=== PATIENT | female | born 1945 | race Caucasian/White ===

== ENCOUNTER 2020-10-14 16:00 | Observation (INO) | payer MEDICARE ==
--- NOTE | 2020-10-14 16:16 | PCM.HP.2 ---
H&P History of Present Illness - General Date of Service: 10/14/20 Admit Problem/Dx: Admission Diagnosis/Problem Admission Diagnosis/Problem Hyponatremia Source of Information: Patient History Limitations: Reports: No Limitations - History of Present Illness Initial Comments - Free Text/Narative: This is a 75yo F with increasing weakness and fatigue. She came to the clinic for evaluation and was found to have severe hyponatremia with symptoms. Onset of Symptoms: Reports: Gradual Duration of Symptoms: Reports: Week(s): Location: Reports: Generalized Severity: Severe Improves with: Reports: None Worsens with: Reports: Movement H&P Review of Systems - Review of Systems: Review Of Systems: Comprehensive ROS is negative, except as noted in HPI. Exam - Exam Exam: See Below - Exam General: Alert, Cooperative HEENT: PERRLA, Conjunctiva Clear, EACs Clear Neck: Supple, Trachea Midline Lungs: Clear to Auscultation, Normal Respiratory Effort Cardiovascular: Regular Rate, Regular Rhythm GI/Abdominal Exam: Normal Bowel Sounds, Soft, Non-Tender Extremities: Normal Inspection Skin: Warm, Dry, Intact Neurological: Cranial Nerves Intact, Reflexes Equal Bilateral - Problem List (1) Hyponatremia SNOMED Code(s): 50593261 ICD Code: E87.1 - HYPO-OSMOLALITY AND HYPONATREMIA Status: Acute Priority: High Current Visit: Yes (2) Altered mental state SNOMED Code(s): 147810907 ICD Code: R41.82 - ALTERED MENTAL STATUS, UNSPECIFIED Status: Acute Priority: High Current Visit: Yes Qualifiers: Altered mental status type: delirium Qualified Code(s): R41.0 - Disorientation, unspecified Problem List Initiated/Reviewed/Updated: Yes Orders Last 24hrs: Active Orders 24 hr Category Date Time Status Patient Status [ADT] Routine ADT 10/14/20 16:10 Ordered Ambulate [RC] PER UNIT ROUTINE Care 10/14/20 16:10 Ordered Oxygen Therapy [RC] PRN Care 10/14/20 16:10 Ordered Vital Signs [RC] Q4H Care 10/14/20 16:10 Ordered Sodium Chloride 0.9% [Normal Saline] 1,000 ml Med 10/14/20 16:15 Ordered IV ASDIRECTED Resuscitation Status Routine Resus Stat 10/14/20 16:10 Ordered Medication Orders Sodium Chloride (Normal Saline) 1,000 mls @ 150 mls/hr IV ASDIRECTED [facility] Assessment/Plan Comment:: Patient to be admitted for NaCl resuscitation and repeat labs in AM. Vitals q4 and as needed.
[2020-10-14] MEDS: Sodium Chloride 0.9% 1,000 ML IV SCH (17:56)
[2020-10-15] MEDS: Sodium Chloride 0.9% 1,000 ML IV SCH ×3 (00:16→13:04)
[2020-10-15] MEDS ORDERED: Lisinopril 10 MG Tab PO ONE (00:20)
[2020-10-15] MEDS ORDERED: Lisinopril 10 MG Tab ONE (00:22)
--- NOTE | 2020-10-15 08:20 | PCM.PN ---
- General Info Date of Service: 10/15/20 Subjective Update: Patient feeling improved today. She had bouts of low sugar with her monitor alarm going off a few times in the night. Nursing report elevated BP as well with an additional lisinopril dose yesterday evening. No concerns today. Functional Status: Reports: Tolerating Diet - Review of Systems General: Reports: Weakness HEENT: Reports: No Symptoms Pulmonary: Reports: No Symptoms Cardiovascular: Reports: No Symptoms Gastrointestinal: Reports: No Symptoms Genitourinary: Reports: No Symptoms Musculoskeletal: Reports: No Symptoms Neurological: Reports: Weakness Psychiatric: Reports: Depression - Patient Data Vitals - Most Recent: Last Vital Signs Temp 36.6 C 10/15/20 04:00 Pulse 76 10/15/20 04:00 Resp 16 10/15/20 04:00 BP 160/80 H 10/15/20 04:00 Pulse Ox 99 10/15/20 04:00 Weight - Most Recent: 58.967 kg I&O - Last 24 Hours: Intake & Output 10/14/20 10/15/20 10/15/20 22:59 06:59 14:59 Intake Total 368 2540 Balance 368 2540 Lab Results Last 24 Hours: Laboratory Results - last 24 hr 10/14/20 10/15/20 10/15/20 Range/Units 18:33 07:30 07:30 WBC 4.6 (4.0-11.0) K/uL RBC 4.12 (3.80-5.80) M/uL Hgb 11.6 (11.5-16.5) g/dL Hct 34.4 L (37.0-47.0) % MCV 84 (76-96) fL MCH 28.2 (27.0-32.0) pg MCHC 33.7 (31.0-35.0) g/dL RDW 12.1 (11.0-16.0) % Plt Count 219 (150-500) K/uL MPV 9.7 (6.0-10.0) fL Neut % (Auto) 66.4 (45.0-70.0) % Lymph % (Auto) 19.6 L (20.0-40.0) % [place] % (Auto) 11.4 H (3.0-10.0) % Eos % (Auto) 2.4 (1.0-5.0) % Baso % (Auto) 0.2 (0.0-0.5) % Neut # (Auto) 3.02 (2.00-7.50) K/uL Lymph # (Auto) 0.89 L (1.50-4.00) K/uL [place] # (Auto) 0.52 (0.20-0.80) K/uL Eos # (Auto) 0.11 (0.04-0.40) K/uL Baso # (Auto) 0.01 L (0.02-0.10) K/uL Sodium 129 L (136-145) mmol/L Potassium 4.1 (3.5-5.1) mmol/L Chloride 95 L (98-107) mmol/L Carbon Dioxide 28.8 (21.0-32.0) mmol/L Anion Gap 9.3 (5.0-15.0) mmol/L BUN 10 D (8-26) mg/dL Creatinine 0.82 (0.55-1.02) mg/dL Est Cr Clr Drug Dosing 49.79 mL/min Estimated GFR (MDRD) > 60 (>60) MLS/MIN BUN/Creatinine Ratio 12.2 (6-25) Glucose 72 L D (74-100) mg/dL Calcium 8.5 (8.5-10.1) mg/dL Total Bilirubin 0.4 (0.0-1.0) mg/dL AST 59 H (15-37) U/L ALT 53 (12-78) U/L Alkaline Phosphatase 178 H (46-116) U/L Total Protein 7.4 (6.4-8.2) g/dL Albumin 3.5 (3.4-5.0) g/dL Globulin 3.9 (2.2-4.2) g/dL Albumin/Globulin Ratio 0.9 (0.8-2.0) SARS-CoV-2 RNA (LASHAY) Negative (NEGATIVE) Med Orders - Current: Current Medications Sodium Chloride (Normal Saline) 1,000 mls @ 150 mls/hr IV ASDIRECTED [facility] Last Admin: 10/15/20 00:16 Dose: 150 mls/hr Documented by: Discontinued Medications Lisinopril (Prinivil) 10 mg PO ONETIME ONE Stop: 10/15/20 00:21 Last Admin: 10/15/20 00:22 Dose: 10 mg Documented by: - Exam General: Alert, Oriented, Cooperative HEENT: Pupils Equal, Pupils Reactive, EOMI Neck: Supple Lungs: Clear to Auscultation, Normal Respiratory Effort Cardiovascular: Regular Rate, Regular Rhythm Back Exam: Normal Inspection Extremities: Normal Inspection Neurological: No New Focal Deficit Psy/Mental Status: Depressed Sepsis Event Note - Evaluation Sepsis Screening Result: No Definite Risk - Focused Exam Vital Signs: Vital Signs Temp Temp Pulse Resp BP BP Pulse Ox 10/15/20 04:00 36.6 C 76 16 160/80 H 99 10/15/20 01:15 78 16 175/80 H 10/15/20 00:22 226/76 H 10/15/20 00:15 77 226/76 H 10/15/20 00:00 36.6 C 78 18 203/76 H 100 - Problem List & Annotations (1) Hyponatremia SNOMED Code(s): 46836977 Code(s): E87.1 - HYPO-OSMOLALITY AND HYPONATREMIA Status: Acute Priority: High Current Visit: Yes (2) Altered mental state SNOMED Code(s): 451845813 Code(s): R41.82 - ALTERED MENTAL STATUS, UNSPECIFIED Status: Acute Priority: High Current Visit: Yes Qualifiers: Altered mental status type: delirium Qualified Code(s): R41.0 - Disorientation, unspecified (3) HTN (hypertension) SNOMED Code(s): 56556551 Code(s): I10 - ESSENTIAL (PRIMARY) HYPERTENSION Status: Acute Priority: Medium Current Visit: Yes (4) Low glucose level SNOMED Code(s): 39917709 Code(s): E16.2 - HYPOGLYCEMIA, UNSPECIFIED Status: Acute Priority: Medium Current Visit: Yes - Problem List Review Problem List Initiated/Reviewed/Updated: Yes - My Orders Last 24 Hours: My Active Orders 10/14/20 16:10 Patient Status [ADT] Routine Ambulate [RC] PER UNIT ROUTINE Oxygen Therapy [RC] PRN Vital Signs [RC] Q4H Resuscitation Status Routine 10/14/20 16:15 Sodium Chloride 0.9% [Normal Saline] 1,000 ml IV ASDIRECTED 10/14/20 18:43 CULTURE MRSA SURVEY [RM] Routine 10/15/20 Breakfast Consistent Carbohydrate Diet [DIET] - Plan Plan:: Patient to be admitted for NaCl resuscitation and repeat labs in AM. Vitals q4 and as needed. 10/15/20 F/u am Labs for Na level. -add lisinopril 10 for total 20mg daily. -monitor glucose - hold insulin at this time -discharge planning pending labs.
[2020-10-15] MEDS: Insulin Aspart 100 Units/ML 3 ML Pen SUBCUT SCH ×3 (08:25→17:22)
[2020-10-15] MEDS ORDERED: 50% Dextrose in Water 50 ML Syringe IVPUSH PRN (08:30)
[2020-10-15] MEDS ORDERED: Polyethylene Glycol 3350 Powder 17 GM Packet PO PRN (08:30)
[2020-10-15] MEDS ORDERED: Glucagon,Human Recombinant 1 MG Vial IM PRN (08:30)
[2020-10-15] MEDS: Lisinopril 10 MG Tab PO SCH (09:30)
[2020-10-15] MEDS: amLODIPine 5 MG Tab PO SCH (17:28)
[2020-10-15] MEDS ORDERED: Insulin Detemir 100 Units/ML 3 ML Pen SUBCUT SCH (20:00)
[2020-10-16] MEDS: Sodium Chloride 0.9% 1,000 ML IV SCH ×2 (05:11→05:13)
[2020-10-16] MEDS ORDERED: Levothyroxine 75 MCG Tab PO SCH (07:00)
[2020-10-16] MEDS: Lisinopril 10 MG Tab PO SCH (07:37)
[2020-10-16] MEDS: amLODIPine 5 MG Tab PO SCH (07:37)
[2020-10-16] MEDS ORDERED: Aspirin 81 MG Tab.EC PO SCH (08:00)
[2020-10-16] MEDS ORDERED: Cholecalciferol (Vitamin D3) 2,000 Unit Cap PO SCH (08:00)
[2020-10-16] MEDS: Insulin Aspart 100 Units/ML 3 ML Pen SUBCUT SCH (08:00)
--- NOTE | 2020-10-16 08:19 | PCM.PN ---
- General Info Date of Service: 10/16/20 Subjective Update: Patient has improved strength and feeling better today. No nursing concerns. Functional Status: Reports: Tolerating Diet, Ambulating - Review of Systems General: Reports: Weakness HEENT: Reports: No Symptoms Pulmonary: Reports: No Symptoms Cardiovascular: Reports: No Symptoms Gastrointestinal: Reports: No Symptoms Genitourinary: Reports: No Symptoms Musculoskeletal: Reports: No Symptoms Skin: Reports: No Symptoms Neurological: Reports: No Symptoms - Patient Data Vitals - Most Recent: Last Vital Signs Temp 36.6 C 10/16/20 07:41 Pulse 80 10/16/20 07:41 Resp 16 10/16/20 07:41 BP 159/51 H 10/16/20 07:41 Pulse Ox 98 10/16/20 07:41 Weight - Most Recent: 58.967 kg I&O - Last 24 Hours: Intake & Output 10/15/20 10/16/20 10/16/20 22:59 06:59 14:59 Intake Total 1800 2100 Balance 1800 2100 Lab Results Last 24 Hours: Laboratory Results - last 24 hr 10/15/20 10/15/20 10/16/20 Range/Units 07:30 08:41 06:57 Sodium 129 L (136-145) mmol/L Potassium 4.1 (3.5-5.1) mmol/L Chloride 95 L (98-107) mmol/L Carbon Dioxide 28.8 (21.0-32.0) mmol/L Anion Gap 9.3 (5.0-15.0) mmol/L BUN 10 D (8-26) mg/dL Creatinine 0.82 (0.55-1.02) mg/dL Est Cr Clr Drug Dosing 49.79 mL/min Estimated GFR (MDRD) > 60 (>60) MLS/MIN BUN/Creatinine Ratio 12.2 (6-25) Glucose 72 L D (74-100) mg/dL POC Glucose 151 H 220 H (74-110) mg/dL Calcium 8.5 (8.5-10.1) mg/dL Total Bilirubin 0.4 (0.0-1.0) mg/dL AST 59 H (15-37) U/L ALT 53 (12-78) U/L Alkaline Phosphatase 178 H (46-116) U/L Total Protein 7.4 (6.4-8.2) g/dL Albumin 3.5 (3.4-5.0) g/dL Globulin 3.9 (2.2-4.2) g/dL Albumin/Globulin Ratio 0.9 (0.8-2.0) Med Orders - Current: Current Medications Amlodipine Besylate (Norvasc) 5 mg PO DAILY [facility] Last Admin: 10/16/20 07:37 Dose: 5 mg Documented by: Aspirin (Halfprin) 81 mg PO DAILY [facility] Last Admin: 10/16/20 07:37 Dose: 81 mg Documented by: Cholecalciferol (Vitamin D3) 2,000 unit PO DAILY [facility] Dextrose/Water (Dextrose 50% In Water) 50 ml IVPUSH ASDIRECTED PRN PRN Reason: Hypoglycemia Glucagon (Glucagen) 1 mg IM ASDIRECTED PRN PRN Reason: Hypoglycemia Sodium Chloride (Normal Saline) 1,000 mls @ 150 mls/hr IV ASDIRECTED [facility] Last Admin: 10/16/20 05:13 Dose: 150 mls/hr Documented by: Insulin Aspart (Novolog) 5 unit SUBCUT TIDMEALS [facility] Last Admin: 10/15/20 17:22 Dose: 5 units Documented by: Insulin Detemir (Levemir) 5 unit SUBCUT BEDTIME [facility] Last Admin: 10/15/20 20:10 Dose: 5 units Documented by: Levothyroxine Sodium (Levothyroxine) 75 mcg PO ACBREAKFAST [facility] Last Admin: 10/16/20 07:37 Dose: 75 mcg Documented by: Lisinopril (Prinivil) 20 mg PO DAILY [facility] Last Admin: 10/16/20 07:37 Dose: 20 mg Documented by: Polyethylene Glycol (Miralax) 17 gm PO DAILY PRN PRN Reason: Constipation Discontinued Medications Lisinopril (Prinivil) 10 mg PO ONETIME ONE Stop: 10/15/20 00:21 Last Admin: 10/15/20 00:22 Dose: 10 mg Documented by: - Exam General: Alert, Oriented, Cooperative HEENT: Pupils Equal, Pupils Reactive, EOMI Lungs: Clear to Auscultation, Normal Respiratory Effort Cardiovascular: Regular Rate, Regular Rhythm GI/Abdominal Exam: Normal Bowel Sounds Back Exam: Normal Inspection Extremities: Normal Inspection, Normal Range of Motion Sepsis Event Note - Evaluation Sepsis Screening Result: No Definite Risk - Focused Exam Vital Signs: Vital Signs Temp Pulse Resp BP BP Pulse Ox 10/16/20 07:41 36.6 C 80 16 159/51 H 98 10/16/20 07:37 159/51 H 10/16/20 00:00 36.7 C 70 16 178/80 H 99 - Problem List & Annotations (1) Hyponatremia SNOMED Code(s): 09177269 Code(s): E87.1 - HYPO-OSMOLALITY AND HYPONATREMIA Status: Acute Priority: High Current Visit: Yes (2) Altered mental state SNOMED Code(s): 684780169 Code(s): R41.82 - ALTERED MENTAL STATUS, UNSPECIFIED Status: Acute Priority: High Current Visit: Yes Qualifiers: Altered mental status type: delirium Qualified Code(s): R41.0 - Disorientation, unspecified (3) HTN (hypertension) SNOMED Code(s): 09162715 Code(s): I10 - ESSENTIAL (PRIMARY) HYPERTENSION Status: Acute Priority: Medium Current Visit: Yes (4) Low glucose level SNOMED Code(s): 99271152 Code(s): E16.2 - HYPOGLYCEMIA, UNSPECIFIED Status: Acute Priority: Medium Current Visit: Yes - Problem List Review Problem List Initiated/Reviewed/Updated: Yes - My Orders Last 24 Hours: My Active Orders 10/15/20 08:00 lisinopriL [Prinivil] 20 mg PO DAILY 10/15/20 08:30 Dextrose 50% in Water 50 ml IVPUSH ASDIRECTED PRN Glucagon,Human Recombinant [GlucaGen] 1 mg IM ASDIRECTED PRN polyethylene glycoL 3350 [MiraLAX] 17 gm PO DAILY PRN 10/15/20 12:00 Insulin Aspart [NovoLOG] 5 unit SUBCUT TIDMEALS 10/15/20 Dinner Consistent Carbohydrate Diet [DIET] amLODIPine [Norvasc] 5 mg PO DAILY 10/15/20 20:00 Insulin Detemir [Levemir] 5 unit SUBCUT BEDTIME 10/16/20 07:00 Levothyroxine 75 mcg PO ACBREAKFAST 10/16/20 07:40 ALANINE AMINOTRANSFERASE,ALT [CHEM] Routine ALKALINE PHOSPHATASE [CHEM] Routine ASPARTATE AMNIOTRANSFERASE,AST [CHEM] Routine BASIC METABOLIC PANEL,BMP [CHEM] AM 10/16/20 08:00 Aspirin [Halfprin] 81 mg PO DAILY Cholecalciferol (Vitamin D3) [Vitamin D3] 2,000 unit PO DAILY - Plan Plan:: Patient to be admitted for NaCl resuscitation and repeat labs in AM. Vitals q4 and as needed. 10/15/20 F/u am Labs for Na level. -add lisinopril 10 for total 20mg daily. -monitor glucose - hold insulin at this time -discharge planning pending labs. 10/16/20 F/u am Labs for Na level. -continue current BP meds - BP controlled -glucose stable Discharge planning pending labs.
--- NOTE | 2020-10-16 08:34 | PCM.DCSUM1 ---
Discharge Summary - Discharge Data Discharge Date: 10/16/20 Discharge Disposition: Home, Self-Care 01 Condition: Good - Referral to Home Health Primary Care Physician: PCP None - Discharge Diagnosis/Problem(s) (1) Hyponatremia SNOMED Code(s): 96003508 ICD Code: E87.1 - HYPO-OSMOLALITY AND HYPONATREMIA Status: Acute Priority: High Current Visit: Yes (2) Altered mental state SNOMED Code(s): 486144398 ICD Code: R41.82 - ALTERED MENTAL STATUS, UNSPECIFIED Status: Resolved Priority: High Current Visit: Yes Qualifiers: Altered mental status type: delirium Qualified Code(s): R41.0 - Disorientation, unspecified (3) HTN (hypertension) SNOMED Code(s): 72352083 ICD Code: I10 - ESSENTIAL (PRIMARY) HYPERTENSION Status: Resolved Priority: Medium Current Visit: Yes (4) Low glucose level SNOMED Code(s): 17266913 ICD Code: E16.2 - HYPOGLYCEMIA, UNSPECIFIED Status: Resolved Priority: Medium Current Visit: Yes - Patient Instructions Diet: Usual Diet as Tolerated Activity: As Tolerated - Discharge Plan Prescriptions/Med Rec: amLODIPine [Norvasc] 5 mg PO DAILY #90 tablet lisinopriL [Prinivil] 20 mg PO DAILY #90 tablet Home Medications: Home Meds Aspirin [Adult Low Dose Aspirin EC] 81 mg PO DAILY 10/15/20 [History] Cholecalciferol (Vitamin D3) [Vitamin D3] 2,000 unit PO DAILY 10/15/20 [History] Insulin Aspart [NovoLOG] 10 unit SUBCUT TIDMEALS 10/15/20 [History] Insulin Detemir [Levemir] 10 unit SUBCUT BEDTIME 10/15/20 [History] Levothyroxine 75 mcg PO ACBREAKFAST 10/15/20 [History] polyethylene glycoL 3350 [MiraLAX] 17 gm PO DAILY PRN 10/15/20 [History] amLODIPine [Norvasc] 5 mg PO DAILY #90 tablet 10/16/20 [Rx] lisinopriL [Prinivil] 20 mg PO DAILY #90 tablet 10/16/20 [Rx] - Discharge Summary/Plan Comment DC Time >30 min.: No Discharge Summary/Plan Comment: Patient to be discharged with instructions. Start additional salt supplementation with meals as directed (discussed salt tablets but will f/u in clinic in 1 week for BMP). Continue Lisinopril 20mg and Norvasc 5 mg daily. Discussed use of levemir daily starting in the AM instead of PM due to lower glucose levels after midnight until 7am. Continue novolog with carb counting. F/u in clinic in 1 week for glucose diary log check and adjustment and f/u HTN and f/u BMP. RTC sooner if any concerns or complications. - Patient Data Vitals - Most Recent: Last Vital Signs Temp 36.6 C 10/16/20 07:41 Pulse 80 10/16/20 07:41 Resp 16 10/16/20 07:41 BP 159/51 H 10/16/20 07:41 Pulse Ox 98 10/16/20 07:41 Weight - Most Recent: 58.967 kg I&O - Last 24 hours: Intake & Output 10/15/20 10/16/20 10/16/20 22:59 06:59 14:59 Intake Total 1800 2100 Balance 1800 2100 Lab Results - Last 24 hrs: Laboratory Results - last 24 hr 10/15/20 10/16/20 10/16/20 Range/Units 08:41 06:57 07:40 Sodium 130 L (136-145) mmol/L Potassium 4.7 (3.5-5.1) mmol/L Chloride 95 L (98-107) mmol/L Carbon Dioxide 27.6 (21.0-32.0) mmol/L Anion Gap 12.1 (5.0-15.0) mmol/L BUN 11 (8-26) mg/dL Creatinine 0.90 (0.55-1.02) mg/dL Est Cr Clr Drug Dosing 45.36 mL/min Estimated GFR (MDRD) > 60 (>60) MLS/MIN BUN/Creatinine Ratio 12.2 (6-25) Glucose 222 H D (74-100) mg/dL POC Glucose 151 H 220 H (74-110) mg/dL Calcium 8.5 (8.5-10.1) mg/dL AST 57 H (15-37) U/L ALT 59 (12-78) U/L Alkaline Phosphatase 187 H (46-116) U/L Med Orders - Current: Current Medications Amlodipine Besylate (Norvasc) 5 mg PO DAILY [facility] Last Admin: 10/16/20 07:37 Dose: 5 mg Documented by: Aspirin (Halfprin) 81 mg PO DAILY [facility] Last Admin: 10/16/20 07:37 Dose: 81 mg Documented by: Cholecalciferol (Vitamin D3) 2,000 unit PO DAILY [facility] Dextrose/Water (Dextrose 50% In Water) 50 ml IVPUSH ASDIRECTED PRN PRN Reason: Hypoglycemia Glucagon (Glucagen) 1 mg IM ASDIRECTED PRN PRN Reason: Hypoglycemia Sodium Chloride (Normal Saline) 1,000 mls @ 150 mls/hr IV ASDIRECTED [facility] Last Admin: 10/16/20 05:13 Dose: 150 mls/hr Documented by: Insulin Aspart (Novolog) 5 unit SUBCUT TIDMEALS [facility] Last Admin: 10/15/20 17:22 Dose: 5 units Documented by: Insulin Detemir (Levemir) 5 unit SUBCUT BEDTIME [facility] Last Admin: 10/15/20 20:10 Dose: 5 units Documented by: Levothyroxine Sodium (Levothyroxine) 75 mcg PO ACBREAKFAST [facility] Last Admin: 10/16/20 07:37 Dose: 75 mcg Documented by: Lisinopril (Prinivil) 20 mg PO DAILY [facility] Last Admin: 10/16/20 07:37 Dose: 20 mg Documented by: Polyethylene Glycol (Miralax) 17 gm PO DAILY PRN PRN Reason: Constipation Discontinued Medications Lisinopril (Prinivil) 10 mg PO ONETIME ONE Stop: 10/15/20 00:21 Last Admin: 10/15/20 00:22 Dose: 10 mg Documented by:
== END 2020-10-16 09:55 | disposition home or self-care (01) ==
LOC: UNDOADMOB 16:00 → LB.MS 16:00
PROVIDERS: ADMIT Family Medicine; ATTEND Family Medicine
DX: E87.1 Hypo-osmolality and hyponatremia (principal); R41.82 Altered mental status, unspecified; I10 Essential (primary) hypertension; E16.2 Hypoglycemia, unspecified; Z79.82 Long term (current) use of aspirin; Z79.899 Other long term (current) drug therapy; Z20.822 Contact with and (suspected) exposure to COVID-19
CPT/HCPCS: 36415; 80048; 80053; 82962; 84075; 84450; 84460; 85025; 99217; 99218; 99225; A9270-GY; G0378; G0379; J1815-GY; J7030; U0002

== ENCOUNTER 2020-12-15 16:20 | Inpatient (IN) | payer MEDICARE ==
--- NOTE | 2020-12-15 17:08 | PCM.HP.2 ---
H&P History of Present Illness - General Date of Service: 12/15/20 Admit Problem/Dx: Admission Diagnosis/Problem Admission Diagnosis/Problem Altered mental status Source of Information: Patient, Family, Old Records, Significant Other, Other History Limitations: Reports: Altered Mental Status - History of Present Illness Initial Comments - Free Text/Narative: This is a 75yo F with fatigue, altered mental status and severe weakness admitted for hyperbilirubinemia, hyperammonemia, hepatic encephalopathy and leukocytosis. She remains very weak and fatigued with confusion and delayed responses. These symptoms have progress very recently but the fatigue and concerns have started for the past few months. Onset of Symptoms: Reports: Sudden Duration of Symptoms: Reports: Getting Worse Location: Reports: Generalized Severity: Severe Improves with: Reports: None Worsens with: Reports: None - Related Data Allergies/Adverse Reactions: Allergies Allergy/AdvReac Type Severity Reaction Status Date / Time Penicillins Allergy Mild Rash Verified 10/14/20 17:19 Sulfa (Sulfonamide Allergy Unknown Other Verified 10/14/20 17:20 Antibiotics) Home Medications: Home Meds Cholecalciferol (Vitamin D3) [Vitamin D3] 2,000 unit PO DAILY 10/15/20 [History] Levothyroxine 75 mcg PO ACBREAKFAST 10/15/20 [History] polyethylene glycoL 3350 [MiraLAX] 17 gm PO DAILY PRN 10/15/20 [History] Insulin NPH Hum/Reg Insulin Hm [Novolin 70-30 Flexpen] 10 units SQ ACDINNER 12/15/20 [History] Insulin NPH Hum/Reg Insulin Hm [Novolin 70-30 Flexpen] 25 units SQ ACBREAKFAST 12/15/20 [History] amLODIPine [Norvasc] 5 mg PO DAILY 12/15/20 [History] lisinopriL [Prinivil] 10 mg PO DAILY 12/15/20 [History] Past Medical History HEENT History: Reports: Impaired Vision Gastrointestinal History: Reports: Hemorrhoids [employer] History: Reports: , Spontaneous Other OB/BYN History: 5 - 1 still born Psychiatric History: Reports: Depression Other Psychiatric History: zoloft Endocrine/Metabolic History: Reports: Diabetes, Type I, Hypothyroidism - Infectious Disease History Infectious Disease History: Reports: Chicken Pox, Measles, Mumps - Past Surgical History Head Surgeries/Procedures: Reports: None HEENT Surgical History: Reports: None GI Surgical History: Reports: None, Colonoscopy Endocrine Surgical History: Reports: None Social & Family History - Family History Family Medical History: No Pertinent Family History - Caffeine Use Caffeine Use: Reports: Coffee, Tea Other Caffeine Use: green tea H&P Review of Systems - Review of Systems: Review Of Systems: See Below General: Reports: Weakness, Fatigue, Other (altered mental status, lethargy) HEENT: Reports: No Symptoms Pulmonary: Reports: No Symptoms Cardiovascular: Reports: Dyspnea on Exertion, Edema Gastrointestinal: Reports: No Symptoms Genitourinary: Reports: No Symptoms Musculoskeletal: Reports: Muscle Pain Skin: Reports: Jaundice Psychiatric: Reports: Confusion Neurological: Reports: Confusion, Weakness Exam - Exam Exam: See Below - Vital Signs Vital Signs: Last Vital Signs Temp 36.9 C 12/15/20 16:35 Pulse 89 12/15/20 16:35 Resp 16 12/15/20 16:35 BP 103/59 L 12/15/20 16:35 Pulse Ox 99 12/15/20 16:35 - Exam General: Lethargic HEENT: PERRLA, Conjunctiva Clear, EACs Clear, EOMI Neck: Supple, Trachea Midline Lungs: Normal Respiratory Effort, Rhonchi Cardiovascular: Regular Rate, Regular Rhythm GI/Abdominal Exam: Normal Bowel Sounds, Soft, Non-Tender Back Exam: Normal Inspection, Full Range of Motion Extremities: Pedal Edema Peripheral Pulses: 2+: Dorsalis Pedis (L), Dorsalis Pedis (R) Skin: Warm, Dry, Intact Neuro Extensive - Mental Status: Disorientation to Time, Inattentive, Slow Response to Commands Psychiatric: Depressed Sepsis Event Note - Focused Exam Vital Signs: Vital Signs Temp Pulse Resp BP Pulse Ox 12/15/20 16:35 36.9 C 89 16 103/59 L 99 - Problem List (1) Hepatic encephalopathy SNOMED Code(s): 01303869 ICD Code: K72.90 - HEPATIC FAILURE, UNSPECIFIED WITHOUT COMA Status: Acute Priority: High Current Visit: Yes (2) Hyperammonemia SNOMED Code(s): 1863970 ICD Code: E72.20 - DISORDER OF UREA CYCLE METABOLISM, UNSPECIFIED Status: Acute Priority: High Current Visit: Yes (3) Liver metastases Status: Acute Priority: High Current Visit: Yes (4) Hyperbilirubinemia SNOMED Code(s): 30817726 ICD Code: E80.6 - OTHER DISORDERS OF BILIRUBIN METABOLISM Status: Acute Priority: High Current Visit: Yes (5) Fatigue SNOMED Code(s): 88088957 ICD Code: R53.83 - OTHER FATIGUE Status: Acute Priority: High Current Visit: Yes Qualifiers: Fatigue type: other Qualified Code(s): R53.83 - Other fatigue (6) Weakness generalized SNOMED Code(s): 52374048 ICD Code: R53.1 - WEAKNESS Status: Acute Priority: High Current Visit: Yes (7) Liver enzyme elevation SNOMED Code(s): 223088478 ICD Code: R74.8 - ABNORMAL LEVELS OF OTHER SERUM ENZYMES Status: Acute Priority: High Current Visit: Yes (8) Altered mental state SNOMED Code(s): 829241219 ICD Code: R41.82 - ALTERED MENTAL STATUS, UNSPECIFIED Status: Resolved Priority: High Current Visit: Yes Qualifiers: Altered mental status type: delirium Qualified Code(s): R41.0 - Disorientation, unspecified Problem List Initiated/Reviewed/Updated: Yes Orders Last 24hrs: Active Orders 24 hr Category Date Time Status Patient Status [ADT] Routine ADT 12/15/20 16:35 Active Oxygen Therapy [RC] PRN Care 12/15/20 16:35 Active VTE/DVT Education [RC] DAILY Care 12/15/20 16:35 Active Vital Signs [RC] Q4H Care 12/15/20 16:35 Active Abdomen Pelvis wo Cont [CT] Routine Exams 12/15/20 Taken AMMONIA VENOUS [CHEM] Routine Lab 12/16/20 05:11 Ordered BILIRUBIN DIRECT [CHEM] Routine Lab 12/16/20 05:11 Ordered CBC WITH AUTO DIFF [HEME] AM Lab 12/16/20 05:11 Ordered CEA Urgent Lab 12/16/20 05:11 Ordered COMPREHENSIVE METABOLIC PN,CMP [CHEM] AM Lab 12/16/20 05:11 Ordered Lactulose [Chronulac] Med 12/15/20 20:00 Ordered 20 gm PO TID Sodium Chloride 0.9% [Normal Saline] 1,000 ml Med 12/15/20 17:15 Ordered IV ASDIRECTED Medication Orders Sodium Chloride (Normal Saline) 1,000 mls @ 75 mls/hr IV ASDIRECTED [facility] Lactulose (Lactulose Soln 10 Gm/15 Ml 15 Ml Ud Cup) 20 gm PO TID [facility] Assessment/Plan Comment:: Patient admitted or correction of hepatic encephalopathy and management of fatigue and follow up labs in the AM. Suspected Liver metastases - patient to be transferred to [place] in the AM for further care of Oncology/IM. F/u labs in am for hyperbilirubinemia, liver enzymes, leukocytosis and abnormal labs. - Mortality Measure Prognosis:: Poor
[2020-12-15] MEDS: Sodium Chloride 0.9% 1,000 ML IV SCH (17:39)
--- NOTE | 2020-12-15 18:18 | CT ---
DATE OF SERVICE: 12/15/2020 CLINICAL DATA: PAIN. UNENHANCED ABDOMEN AND PELVIC CT: Multislice acquisition through the abdomen and pelvis without IV or oral contrast was performed. No priors. There is a 4.7 cm right hilar mass that encases the right lower lobe bronchus and partially encases the right middle lobe bronchus. Chest CT is recommended to further evaluate. The liver is enlarged. There are innumerable low-density lesions scattered throughout the liver consistent with hepatic metastases. An enhanced scan may be helpful to better characterize these. The gallbladder is not adequately visualized. The spleen appears normal. The pancreas appears normal. There are small nonobstructing renal calculi bilaterally. No hydronephrosis or hydroureter. The right and left adrenals are unremarkable. No masses. The bladder is partially fluid filled. It appears normal. There is diffuse gastric wall thickening. This is probably related to nondistention. Gastritis or an infiltrating process should be considered. There is mass-like mural thickening in the cecal wall. Colonoscopy is recommended to further evaluate this. No free air. No free fluid. No dilated loops of bowel. No adenopathy. There is degenerative disc disease at multiple levels. No lytic or blastic bone lesions. IMPRESSION: Abnormal exam. Chest CT recommended. Findings consistent with diffuse hepatic metastases. Other findings as discussed above. [id number] [id number]
[2020-12-15] MEDS: Lactulose Soln 10 GM/15 ML 15 ML UD Cup PO SCH (22:00)
[2020-12-16] MEDS: Sodium Chloride 0.9% 1,000 ML IV SCH (05:56)
[2020-12-16] MEDS ORDERED: Levothyroxine 75 MCG Tab PO SCH (07:00)
[2020-12-16] MEDS ORDERED: Lisinopril 10 MG Tab PO SCH (08:00)
[2020-12-16] MEDS ORDERED: Cholecalciferol (Vitamin D3) 2,000 Unit Cap PO SCH (08:00)
[2020-12-16] MEDS ORDERED: Insulin NPH/Insulin Regular,Human 70-30 100 Units/ML 10 ML Vial SUBCUT SCH ×2 (08:00→17:00)
[2020-12-16] MEDS ORDERED: amLODIPine 5 MG Tab PO SCH (08:00)
[2020-12-16] MEDS: Lactulose Soln 10 GM/15 ML 15 ML UD Cup PO SCH (08:16)
[2020-12-16] MEDS ORDERED: 50% Dextrose in Water 50 ML Syringe IVPUSH PRN (08:41)
[2020-12-16] MEDS ORDERED: Glucagon,Human Recombinant 1 MG Vial IM PRN (08:41)
[2020-12-16] MEDS: Insulin Aspart 100 Units/ML 3 ML Pen SUBCUT SCH ×3 (09:00→17:14)
[2020-12-16] MEDS ORDERED: Sodium Chloride 0.9% 50 ML SDV FLUSH ONE (11:11)
[2020-12-16] MEDS ORDERED: Iodixanol 652 MG/ML 100 ML Bottle IV SCH (11:15)
--- NOTE | 2020-12-16 14:07 | CT ---
DATE OF SERVICE: 12/16/20 CLINICAL DATA: confusion UNENHANCED BRAIN CT: Multi slice axial acquisition without IV contrast was performed. Comparison is made to a prior exam dated 12/15/20. No significant changes. No acute intracranial abnormalities. [id number] [facility]
[2020-12-16] MEDS ORDERED: oxyCODONE 5 MG Tab PO ONE (17:02)
--- NOTE | 2020-12-17 08:35 | CT ---
Date of Service: 12/16/20 Clinical Data: lung lesion ENHANCED CHEST CT: Multislice acquisition through the chest with IV contrast was performed. No priors. There is a right hilar mass. It encases the bronchus intermedius as well as the right lower lobe and right middle lobe bronchi. There are also enlarged lymph nodes within the retrocaval pretracheal space, anterior to the tanya, and within the subcarinal middle mediastinum. A carcinoma with direct extension into the mediastinum or metastatic adenopathy is suspected. There are atelectatic changes involving the right middle lobe and right lower lobe. The left lung is clear. No pleural effusions. No pneumothorax. The heart size is normal. There are moderate coronary artery calcifications. No significant pericardial effusion. No aortic aneurysm. IMPRESSION: Right hilar mass with mediastinal and hilar adenopathy. 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 There are also associated atelectatic changes of the right middle and right lower lobes. ENHANCED ABDOMEN AND PELVIC CT: Multislice axial acquisition with IV, but without oral contrast was performed. No priors. Again noted is a right hilar mass with hilar and mediastinal adenopathy. The liver is abnormal. The entire liver has been replaced with varying sized masses with variable enhancement consistent with diffuse hepatic metastasis. The gallbladder is not adequately seen. No biliary duct dilatation. Spleen appears normal. The pancreas appears normal. The right and left adrenals appear normal. The right and left kidneys enhance symmetrically. There are small nonobstructing renal calculi bilaterally. No hydronephrosis or hydroureter. The bladder is fluid filled. It appears normal. There is a small amount of free fluid noted within the pelvis. No free air. No dilated loops of bowel. No adenopathy. No aortic aneurysm or dissection. There are scattered sclerotic lesions throughout the osseous structures. Osseous metastases are suspected. No other significant findings. IMPRESSION: Abnormal exam. See above. [id number] [facility]
== END 2020-12-16 18:00 | DRG 441 ==
LOC: UNDOADMIN 16:20 → LB.MS 16:20
PROVIDERS: ADMIT Family Medicine; ATTEND Family Medicine
PROC: 8E0ZXY6 Isolation (ICD-10-PCS; principal; 2020-12-15)
DX: K72.00 Acute and subacute hepatic failure without coma (principal); U07.1 COVID-19; C78.7 Secondary malignant neoplasm of liver and intrahepatic bile duct; H54.7 Unspecified visual loss; F32.9 Major depressive disorder, single episode, unspecified; E10.9 Type 1 diabetes mellitus without complications; E03.9 Hypothyroidism, unspecified; Z88.0 Allergy status to penicillin; Z88.2 Allergy status to sulfonamides; Z79.890 Hormone replacement therapy; Z79.4 Long term (current) use of insulin
CPT/HCPCS: 36415; 70460; 71260; 74176; 74177; 80053; 82140; 82248; 82378; 82962; 85025; A0425; A0429; A9270-GY; J1815-GY; J7030; U0002